=== PATIENT | female | born 1955 | race American Indian/Alaskan Native ===

== ENCOUNTER 2017-01-07 10:07 | Emergency (ER) | payer OTHER ==
[2017-01-07 11:17] LABS: Basophils % (Auto) 0.5 % (0.0-1.8); Eosinophils % (Auto) 0.9 % (0.0-4.3); Hematocrit 43.5 % (30.3-42.9); Mean Corpuscular HGB Conc 32 % (30-34); Mean Corpuscular Hemoglobin 29 pg (28-32); Mean Corpuscular Volume 89 fl (79-97); Platelet Count 192 K/mm3 (140-440); Red Cell Distribution Width 13.7 % (13.2-15.2)
[2017-01-07 11:24] LABS: Anion Gap 20 mmol/L; BUN/Creatinine Ratio 12.72; Blood Urea Nitrogen 14 mg/dL (7-17); Calcium 10.1 mg/dL (8.4-10.2); Carbon Dioxide 25 mmol/L (22-30); Chloride 85.9 mmol/L (98-107); Potassium 4.3 mmol/L (3.6-5.0); Sodium 127 mmol/L (137-145)
[2017-01-07 11:27] LABS: Glucose 601 mg/dL (65-100)
[2017-01-07] MEDS ORDERED: NACL 0.9% 1000 ML 2,000 ML IV ONE (11:55)
--- NOTE | 2017-01-07 12:47 | XRay Report ---
CHEST 2 VIEWS INDICATION: Hyperglycemia, possible pneumonia. COMPARISON: None similar. FINDINGS: PA and lateral chest radiographs demonstrate normal cardiomediastinal silhouette. Clear lungs. Intact bones. Probable cholecystectomy clips. CONCLUSION: No acute disease in the chest. Thank you for the opportunity to participate in this patient's care.
[2017-01-07 12:49] LABS: Bilirubin,Urine NEG (Negative); Blood,Urine SM (Negative); Ketones,Urine 20 mg/dL (Negative); Leukocyte Esterase,Urine NEG (Negative); Mucus,Urine FEW /HPF; Nitrite,Urine NEG (Negative); Protein,Urine <15 mg/dL mg/dL (Negative); Urobilinogen,Urine < 2.0 mg/dL (<2.0)
--- NOTE | 2017-01-07 13:18 | Emergency Department Report ---
ED General Adult HPI - General Chief complaint: Hyperglycemia Stated complaint: DRY MOUTH/WEAK Time Seen by Provider: 01/07/17 11:55 Source: patient, RN notes reviewed Mode of arrival: Ambulatory Limitations: No Limitations - History of Present Illness Initial comments: This is a 61-year-old female. She is previously immensely. Her primary care doctor is Dr. Craig. She does not have a history of diabetes that she is aware. She has a past medical history of hypertension and diverticulosis/diverticulitis. The patient presents to the ER complaining of polyuria, polydipsia, dry mouth, vaginal dryness and discharge. She has no pain. She reports feeling "crampy and hot" all over her body. Symptoms are constant. They have no exacerbating or relieving factors. No fevers or chills, no chest pain or shortness of breath , no abdominal pain, no vomiting. -: Gradual Consistency: constant Improves with: none Worsens with: none Associated Symptoms: malaise, weakness. denies: confusion, chest pain, cough, diaphoresis, loss of appetite - Related Data Home Medications Medication Instructions Recorded Confirmed Last Taken Levocetirizine Dihydrochloride 5 mg PO DAILY 01/07/17 01/07/17 01/02/17 [Xyzal] Lisinopril [Zestril] 20 mg PO QDAY 01/07/17 01/07/17 01/02/17 Meloxicam [Mobic] 15 mg PO DAILY 01/07/17 01/07/17 01/02/17 Omeprazole Magnesium [PriLOSEC Otc] 20 mg PO QDAY 01/07/17 01/07/17 01/02/17 Ranitidine HCl [Acid [employer]] 150 mg PO BID 01/07/17 01/07/17 01/02/17 amLODIPine [Norvasc] 10 mg PO DAILY 01/07/17 01/07/17 01/02/17 Previous Rx's Medication Instructions Recorded Last Taken Type Dicyclomine [Bentyl] 10 mg PO QID PRN #20 capsule 01/07/17 Unknown Rx Ondansetron [Zofran Odt] 4 mg PO QID PRN #20 tab.rapdis 01/07/17 Unknown Rx Allergies Allergy/AdvReac Type Severity Reaction Status Date / Time No Known Allergies Allergy Unverified 01/07/17 10:35 ED Review of Systems ROS: Stated complaint: DRY MOUTH/WEAK Other details as noted in HPI Constitutional: denies: fever Eyes: denies: vision change ENT: denies: epistaxis Respiratory: denies: cough Cardiovascular: denies: chest pain Endocrine: increased thirst, increased urine Gastrointestinal: denies: vomiting Genitourinary: discharge Musculoskeletal: as per HPI Skin: as per HPI Neurological: as per HPI, weakness Psychiatric: as per HPI ED Past Medical Hx - Past Medical History Previous Medical History?: No Additional medical history: Diverticulitis - Surgical History Hx Cholecystectomy: Yes - Social History Smoking Status: Never Smoker Substance Use Type: None - Medications Home Medications: Home Medications Medication Instructions Recorded Confirmed Last Taken Type Dicyclomine [Bentyl] 10 mg PO QID PRN #20 capsule 01/07/17 Unknown Rx Levocetirizine Dihydrochloride 5 mg PO DAILY 01/07/17 01/07/17 01/02/17 History [Xyzal] Lisinopril [Zestril] 20 mg PO QDAY 01/07/17 01/07/17 01/02/17 History Meloxicam [Mobic] 15 mg PO DAILY 01/07/17 01/07/17 01/02/17 History Omeprazole Magnesium [PriLOSEC Otc] 20 mg PO QDAY 01/07/17 01/07/17 01/02/17 History Ondansetron [Zofran Odt] 4 mg PO QID PRN #20 tab.rapdis 01/07/17 Unknown Rx Ranitidine HCl [Acid [employer]] 150 mg PO BID 01/07/17 01/07/17 01/02/17 History amLODIPine [Norvasc] 10 mg PO DAILY 01/07/17 01/07/17 01/02/17 History ED Physical Exam - General Limitations: No Limitations General appearance: alert, in no apparent distress - Head Head exam: Present: atraumatic, normocephalic - Eye Eye exam: Present: normal appearance, EOMI. Absent: nystagmus - ENT ENT exam: Present: normal exam, normal orophraynx, mucous membranes dry - Neck Neck exam: Present: normal inspection, full ROM. Absent: tenderness, meningismus - Respiratory Respiratory exam: Present: normal lung sounds bilaterally. Absent: respiratory distress, wheezes, rales, rhonchi, stridor, chest wall tenderness, accessory muscle use, decreased breath sounds, prolonged expiratory - Cardiovascular Cardiovascular Exam: Present: regular rate, normal rhythm, normal heart sounds. Absent: bradycardia, tachycardia, irregular rhythm, systolic murmur, diastolic murmur, rubs, gallop - GI/Abdominal GI/Abdominal exam: Present: soft, normal bowel sounds. Absent: distended, tenderness, guarding, rebound, rigid, hyperactive bowel sounds, hypoactive bowel sounds, organomegaly, mass, bruit, pulsatile mass, hernia - External exam: Present: normal external exam. Absent: erythema, swelling, lesions, lacerations, ecchymosis Speculum exam: Present: cervical discharge. Absent: vaginal bleeding Bi-manual exam: Present: normal bi-manual exam, other (escorted by JEANETTE Vieyra) - Extremities Exam Extremities exam: Present: normal inspection, full ROM, normal capillary refill. Absent: tenderness, pedal edema, joint swelling, calf tenderness - Back Exam Back exam: Present: normal inspection, full ROM. Absent: tenderness, CVA tenderness (R), CVA tenderness (L), muscle spasm, paraspinal tenderness, vertebral tenderness - Neurological Exam Neurological exam: Present: alert, normal gait, other (Extraocular movements intact. Tongue midline. No facial droop. Facial sensation intact to light touch in the V1, V2, V3 distribution bilaterally. 5 and 5 strength in 4 extremities.. Sensation is intact to light touch in 4 extremities.). Absent: motor sensory deficit - Psychiatric Psychiatric exam: Present: normal affect, normal mood - Skin Skin exam: Present: warm, dry, intact, normal color. Absent: rash ED Course Vital Signs 01/07/17 01/07/17 01/07/17 10:35 11:39 12:09 Temperature 98.1 F Pulse Rate 105 H 100 H Respiratory 18 22 Rate Blood Pressure 186/124 165/106 O2 Sat by Pulse 99 100 99 Oximetry 01/07/17 01/07/17 01/07/17 12:12 13:01 13:30 Temperature Pulse Rate 95 H 90 Respiratory 16 18 Rate Blood Pressure 165/106 164/105 O2 Sat by Pulse 97 Oximetry 01/07/17 01/07/17 14:00 14:30 Temperature Pulse Rate 97 H 83 Respiratory 17 16 Rate Blood Pressure 123/100 163/101 O2 Sat by Pulse 98 95 Oximetry - Reevaluation(s) Reevaluation #1: 01/07/17 14:13 Differential diagnosis: Hyperglycemia, diabetic ketoacidosis, hyperosmolar state , pneumonia, urinary tract infection, vaginitis Assessment and plan: 61-year-old female with new onset diabetes, hyperglycemia, without anion gap acidosis. She is afebrile, tachycardia has resolved, she is somewhat hypertensive, this is a chronic problem. Laboratory studies indicate pseudohyponatremia, without evidence of anion gap acidosis. She is given insulin, 2 L of IV fluid. The gynecologic exam demonstrated mild discharge, and some dryness. The patient prefers to follow-up with a primary care doctor, and reports that she will start a diet must all modifications. She does not want to start metformin. I think that this is reasonable. Elevated blood pressure appreciated, does not require specific emergent intervention at this time as per the [employer] clinical policy. Reevaluation #2: 01/07/17 14:35 Accu-Chek improved. Wet prep negative. Patient requesting to eat. This is likely an exacerbation of her chronically undiagnosed problem, patient does not require admission to the hospital, she will be discharged at this time. She is to follow up with an outpatient physician at this time. ED Medical Decision Making - Lab Data Result diagrams: 01/07/17 10:48 01/07/17 10:48 Vital Signs 01/07/17 01/07/17 01/07/17 10:35 11:39 12:09 Temperature 98.1 F Pulse Rate 105 H 100 H Respiratory 18 22 Rate Blood Pressure 186/124 165/106 O2 Sat by Pulse 99 100 99 Oximetry 01/07/17 12:12 Temperature Pulse Rate Respiratory 16 Rate Blood Pressure O2 Sat by Pulse Oximetry Labs 01/07/17 01/07/17 01/07/17 10:37 10:48 10:48 WBC 6.0 RBC 4.90 Hgb 14.0 Hct 43.5 H MCV 89 MCH 29 MCHC 32 RDW 13.7 Plt Count 192 Lymph % (Auto) 28.3 Page % (Auto) 9.9 H Eos % (Auto) 0.9 Baso % (Auto) 0.5 Lymph # 1.7 Page # 0.6 Eos # 0.1 Baso # 0.0 Seg Neutrophils % 60.4 Seg Neutrophils # 3.6 VBG pH Sodium 127 L Potassium 4.3 Chloride 85.9 L Carbon Dioxide 25 Anion Gap 20 BUN 14 Creatinine 1.1 Estimated GFR > 60 BUN/Creatinine Ratio 12.72 Glucose 601 H* POC Glucose > 500 H Calcium 10.1 Urine Color Urine Turbidity Urine pH Ur Specific Brohman Urine Protein Urine Glucose (UA) Urine Ketones Urine Blood Urine Nitrite Urine Bilirubin Urine Urobilinogen Ur Leukocyte Esterase Urine WBC (Auto) Urine RBC (Auto) U Epithel Cells (Auto) Urine Mucus 01/07/17 01/07/17 10:48 11:17 WBC RBC Hgb Hct MCV MCH MCHC RDW Plt Count Lymph % (Auto) Page % (Auto) Eos % (Auto) Baso % (Auto) Lymph # Page # Eos # Baso # Seg Neutrophils % Seg Neutrophils # VBG pH 7.361 Sodium Potassium Chloride Carbon Dioxide Anion Gap BUN Creatinine Estimated GFR BUN/Creatinine Ratio Glucose POC Glucose Calcium Urine Color Straw Urine Turbidity Clear Urine pH 5.0 Ur Specific Brohman 1.030 Urine Protein <15 mg/dl Urine Glucose (UA) >=500 Urine Ketones 20 Urine Blood Sm Urine Nitrite Neg Urine Bilirubin Neg Urine Urobilinogen < 2.0 Ur Leukocyte Esterase Neg Urine WBC (Auto) 1.0 Urine RBC (Auto) 1.0 U Epithel Cells (Auto) 2.0 Urine Mucus Few - Radiology Data Radiology results: report reviewed, image reviewed X-ray of the chest is negative for acute disease Critical care attestation.: If time is entered above; I have spent that time in minutes in the direct care of this critically ill patient, excluding procedure time. ED Disposition Clinical Impression: Hyperglycemia Disposition: DISCHARGED TO HOME OR SELFCARE Is pt being admited?: No Does the pt Need Aspirin: No Condition: Stable Instructions: Hyperosmolar Hyperglycemic State (ED), Diabetic Hyperglycemia (ED ) Additional Instructions: Laboratory studies indicated hyperglycemia/elevated blood sugar level, this is most likely suggestive of new onset diabetes. I recommend that you follow up with a primary care doctor for this within the next week. In addition, blood pressure is noted to be elevated, and this should also be followed up by a primary care doctor within the recommended timeframe. Long-term complications of hypertension and hyperglycemia includes stroke, heart attack, disability, , paralysis. The first step to improving hyperglycemia and hypertension is diet and lifestyle modification. http://www.diabetes.org/ftvh-hph-krwtpqv/food/ionq-fyw-k-eat/?referrer=https:// www.[employer].com/ Please go to the aforementioned [employer] Link for assistance with planning and modifying her diet. Take the pain medication nausea medication as needed. Cultures was sent today, results will be available in the next 3-5 days. Have a primary care doctor contact the medical records department to obtain culture results. Return to the ER right away with new pain, worsened pain, migration of pain, fevers or chills, nausea or vomiting, inability to tolerate liquid feeds. Vaginal discomfort most of the common from a combination of hyperglycemia/poorly controlled diabetes and dehydration. Prescriptions: Dicyclomine [Bentyl] 10 mg PO QID PRN #20 capsule PRN Reason: Pain Ondansetron [Zofran Odt] 4 mg PO QID PRN #20 tab.rapdis PRN Reason: Nausea Referrals: PRIMARY CARE, [Primary Care Provider] - 3-5 Days DARRICK CRAIG MD [Referring] - 3-5 Days JORDIN RENEE MD [Referring] - 3-5 Days Forms: Work/School Release Form(ED)
[2017-01-07 15:06] VITALS: BP 163/101
[2017-01-10 23:21] LABS: B-Hydroxybutyrate 1.8 mmol/L (0.2 - 0.28)
== END 2017-01-07 15:05 | disposition home or self-care (01) ==
LOC: ED 10:07
DX: R73.9 Hyperglycemia, unspecified (principal)
CPT/HCPCS: 36415; 71020; 80048; 81001; 82010; 82805; 82962; 85025; 87210; 96374; 99285; J7030; J1815

== ENCOUNTER 2017-01-18 21:38 | Emergency (ER) | payer OTHER ==
[2017-01-18 23:00] LABS: Basophils % (Auto) 0.6 % (0.0-1.8); Eosinophils % (Auto) 1.6 % (0.0-4.3); Hematocrit 41.1 % (30.3-42.9); Hemoglobin 13.2 gm/dl (10.1-14.3); Mean Corpuscular HGB Conc 32 % (30-34); Mean Corpuscular Hemoglobin 29 pg (28-32); Mean Corpuscular Volume 90 fl (79-97); Platelet Count 182 K/mm3 (140-440); Red Blood Count 4.56 M/mm3 (3.65-5.03); Red Cell Distribution Width 13.9 % (13.2-15.2); White Blood Count 4.9 K/mm3 (4.5-11.0)
[2017-01-18] MEDS ORDERED: NACL 0.9% 1000 ML 1,000 ML ONE (23:01)
[2017-01-18 23:23] LABS: Anion Gap 19 mmol/L; BUN/Creatinine Ratio 17.27; Blood Urea Nitrogen 19 mg/dL (7-17); Calcium 9.3 mg/dL (8.4-10.2); Carbon Dioxide 22 mmol/L (22-30); Chloride 93.1 mmol/L (98-107); Potassium 4.7 mmol/L (3.6-5.0); Sodium 129 mmol/L (137-145)
[2017-01-18 23:36] LABS: Glucose 541 mg/dL (65-100)
[2017-01-18] MEDS ORDERED: NACL 0.9% 1000 ML 1,000 ML IV ONE (23:50)
--- NOTE | 2017-01-19 01:01 | Emergency Department Report ---
HPI - General Chief Complaint: Hyperglycemia Time Seen by Provider: 01/18/17 23:48 - HPI HPI: This is a 61-year-old -[place] female presents to the emergency department from home, after being released from the hospital earlier this afternoon, with complaint of hyperglycemia and uncontrolled diabetes. The patient was recently here for a stroke or a TIA and was having hyperglycemic issues at that time as well. They got the blood sugar down to about 280 today and discharge her home. She went home and ate some soup, took her metformin, and checked her blood sugar this evening and found it to be greater than 500. She had some mild polydipsia and polyuria earlier but that seems to have improved. She has a past medical history of hypertension, diverticulitis and this recent diabetes. She is on metformin 1000 mg twice a day. On the way home from the hospital, they attempted to see her primary care doctor, Dr. Craig , but they were unable to see him today and have an appointment for Wednesday. ED Past Medical Hx - Past Medical History Previous Medical History?: Yes Hx Hypertension: Yes Hx Congestive Heart Failure: No Hx Diabetes: Yes Hx Asthma: No Hx COPD: No Additional medical history: Diverticulitis - Surgical History Past Surgical History?: Yes Hx Cholecystectomy: Yes - Social History Smoking Status: Never Smoker Substance Use Type: None - Medications Home Medications: Home Medications Medication Instructions Recorded Confirmed Last Taken Type Meloxicam [Mobic] 15 mg PO DAILY 01/07/17 01/16/17 01/02/17 History Aspirin [Aspirin TAB] 325 mg PO QDAY #30 tablet 01/18/17 Unknown Rx Lisinopril [Zestril TAB] 40 mg PO QDAY #30 tablet 01/18/17 Unknown Rx Metformin HCl [Fortamet ER] 1,000 mg PO BID #60 tab.er.24 01/18/17 Unknown Rx Simvastatin [Zocor TAB] 20 mg PO QHS #30 tablet 01/18/17 Unknown Rx amLODIPine [Norvasc] 10 mg PO DAILY #30 tablet 01/18/17 Unknown Rx ED Review of Systems ROS: Stated complaint: HIGH BLOOD GLUCOSE Other details as noted in HPI Comment: All other systems reviewed and negative Constitutional: denies: chills, fever Eyes: denies: eye pain, eye discharge, vision change ENT: denies: ear pain, throat pain Respiratory: denies: cough, shortness of breath, wheezing Cardiovascular: denies: chest pain, palpitations Endocrine: increased thirst, increased urine Gastrointestinal: denies: abdominal pain, nausea, diarrhea Genitourinary: frequency. denies: dysuria, discharge Musculoskeletal: denies: back pain, joint swelling, arthralgia Skin: denies: rash, lesions Neurological: denies: headache, weakness, paresthesias Physical Exam - Physical Exam Vital Signs: Vital Signs 01/18/17 21:58 Temperature 98.5 F Pulse Rate 100 H Respiratory 18 Rate Blood Pressure 153/103 O2 Sat by Pulse 100 Oximetry Physical Exam: GENERAL: The patient is well-developed well-nourished. HEENT: Normocephalic. Atraumatic. Extraocular motions are intact. Patient has moist mucous membranes. Pupils equal reactive to light bilaterally. NECK: Supple. Trachea is midline. CHEST/LUNGS: Clear to auscultation. There is no respiratory distress noted. HEART/CARDIOVASCULAR: Regular. There is no tachycardia. There is no gallop rub or murmur. ABDOMEN: Abdomen is soft, nontender. Patient has normal bowel sounds. There is no abdominal distention. SKIN: Skin is warm and dry. NEURO: The patient is awake, alert, and oriented. The patient is cooperative. The patient has no focal neurologic deficits. The patient has normal speech. Cranial nerves II through XII grossly intact. Normal gait. MUSCULOSKELETAL: There is no tenderness or deformity. There is no limitation range of motion. There is no evidence of acute injury. ED Course Vital Signs 01/18/17 21:58 Temperature 98.5 F Pulse Rate 100 H Respiratory 18 Rate Blood Pressure 153/103 O2 Sat by Pulse 100 Oximetry ED Medical Decision Making - Lab Data Result diagrams: 01/18/17 22:13 01/18/17 22:13 - Medical Decision Making Is a 61-year-old female presents to the emergency Department with uncontrolled diabetes and some hyperglycemia with a blood sugar of about 550. Other than some earlier mild polyuria and polydipsia, the patient is mostly asymptomatic. Her labs do show the hyperglycemia as well as some pseudohyponatremia. There is no renal insufficiency, leukocytosis. Patient was given a liter of IV fluid and some IV insulin and upon reevaluation her blood sugars come down to 280. It was then checked again about 45 minutes later and was down to 253. With the blood sugar better controlled and the patient being asymptomatic, and the fact that she is not in diabetic ketoacidosis or HHNK, the patient appears safe for discharge home. I attempted to contact the patient's primary care doctor, Dr. Thania Craig, to try and facilitate a follow-up later today, Wednesday. However the patient already has an appointment for Wednesday. We talked about dietary changes to avoid any sugars, carbohydrates and starches. She's been encouraged to call and try and get in to see Dr. Craig today. If she is unable to do so and her blood sugar continues to rise, or she develops any symptoms or any acute distress, she is to return to the emergency department immediately. Patient's vital signs are stable throughout ED course. Patient was seen ambulatory in the emergency department and appeared stable and doing so. She understands and agrees to the plan. - Differential Diagnosis DKA, HHNK Critical Care Time: No Critical care attestation.: If time is entered above; I have spent that time in minutes in the direct care of this critically ill patient, excluding procedure time. ED Disposition Clinical Impression: Hyperglycemia Hypertension Qualifiers: Hypertension type: essential hypertension Qualified Code(s): I10 - Essential ( primary) hypertension Disposition: DISCHARGED TO HOME OR SELFCARE Is pt being admited?: No Condition: Stable Instructions: Hypertension (ED), Diabetic Hyperglycemia (ED) Additional Instructions: Please try and follow up with your primary care doctor later today. Continue taking her metformin as prescribed. Try to stay away from any foods that are high in sugars, carbohydrates and starches as they will all be converted to sugar and can affect your blood sugar level. Keep a blood sugar log. Return to the emergency department with any chest pain, shortness of breath, intractable vomiting, any acute distress, or any further uncontrolled blood sugar. Referrals: THANIA CRAIG MD [Referring] - [facility] Time of Disposition: 01:48
[2017-01-19] MEDS ORDERED: NACL 0.9% 1000 ML 1,000 ML IV ONE (01:17)
[2017-01-19 02:12] VITALS: BP 138/92
== END 2017-01-19 02:33 | disposition home or self-care (01) ==
LOC: ED 21:38
DX: E11.65 Type 2 diabetes mellitus with hyperglycemia (principal); I10 Essential (primary) hypertension; Z90.49 Acquired absence of other specified parts of digestive tract
CPT/HCPCS: 36415; 80048; 82805; 82962; 85025; 96361; 96374; 99284; J7030; J1815